=== PATIENT | female | born 1970 | race Two or more races ===

== ENCOUNTER 2020-08-13 08:53 | Outpatient (CLI) | payer OTHER | END 2020-08-13 09:07 | disposition home or self-care (01) | LOC: MRI 08:53 | PROVIDERS: ATTEND Pain Medicine Interventional Pain Medicine | DX: M43.17 Spondylolisthesis, lumbosacral region (principal); M54.5 Low back pain; M54.17 Radiculopathy, lumbosacral region | CPT/HCPCS: 72148 ==